=== PATIENT | female | born 1950 | race Caucasian/White ===

== ENCOUNTER → 2023-11-15 08:04 | Outpatient (REF) | payer MEDICARE, SELFPAY | LOC: WDC 08:04 | PROVIDERS: ATTENDING PHYSICIAN Nurse Practitioner Adult Health | DX: Z12.31 Encounter for screening mammogram for malignant neoplasm of breast (principal) | CPT/HCPCS: 77063; 77067 ==

== ENCOUNTER → 2025-01-22 07:16 | Outpatient (REF) | payer MEDICARE, SELFPAY | LOC: WDC 07:16 | PROVIDERS: ATTENDING PHYSICIAN Nurse Practitioner Adult Health | DX: Z12.31 Encounter for screening mammogram for malignant neoplasm of breast (principal) | CPT/HCPCS: 77063; 77067 ==